=== PATIENT | female | born 1965 | race Caucasian/White ===

== ENCOUNTER 2017-04-21 21:44 | Emergency (ER) | payer OTHER ==
[~2017-04-21] VITALS: Ht 154.9 cm; Wt 91.2 kg
[~2017-04-21 21:44] MED LIST: ALBUTEROL SUL0.083 % IN; ALBUTEROL2.5 MG/3 M IN; ALLEGRA-D 1212 HOUR PO; AMOXICILLIN500 MG PO; AVELOX400 MG PO; BENADRYL25 M2 PO; CIPRO500 MG OR; CIPROFLOXACN500 MG PO; CLARITIN10 MG PO; DIPHENHYDRAM25 MG PO; DOXYCYCL HYC100 MG PO; DUONEB INH; FLAGYL500 MG OR; FLAGYL500 MG PO; FLEXERIL PO; FLOVENT HFA44 MCG INH; LORTAB5 PO; Levaquin PO; MEDDOSEPAK PO; METRONIDAZOL500 MG PO; NO HOME MEDS; NORCO1 TA1 PO; ONDANSETRON4 MG PO; PREDNISONE1 MG PO; PREDNISONE20 MG PO; PROAIR HFA IN; PROTONIX40 M2 PO; PROVENTIL HFA IN; ROBITUSSIN AC10 ML PO; TRAMADOL HCL50 MG PO; ULTRAM50 M1 PO; ULTRAM50 MG OR; ZOFRAN4 MG/TAB PO; ZPAK PO; ZYRTEC10 M5 PO; ZYRTEC10 MG PO
[2017-04-21] MEDS ORDERED: PROVENTIL HFA IN (22:09)
[2017-04-21] MEDS ORDERED: MONTELUKAST SOD10 MG PO (22:09)
[2017-04-21] MEDS ORDERED: SYMBICORT1 AE1 IN (22:10)
[2017-04-21] MEDS ORDERED: TESSALON PERLE100 MG PO (22:11)
[2017-04-21] MEDS ORDERED: PEPCID20 MG PO (22:46)
[2017-04-21] MEDS ORDERED: BENADRYL 50MG C50 MG PO (22:46)
[2017-04-21 23:00] VITALS: BP 123/59
== END 2017-04-21 23:05 | disposition home or self-care (01) | DRG 607 ==
LOC: ED 21:44
DX: L29.9 Pruritus, unspecified (principal); J44.9 Chronic obstructive pulmonary disease, unspecified; T38.0X5A Adverse effect of glucocorticoids and synthetic analogues, initial encounter; F17.210 Nicotine dependence, cigarettes, uncomplicated

== ENCOUNTER 2017-06-28 18:23 | Emergency (ER) | payer OTHER ==
[~2017-06-28] VITALS: Ht 154.9 cm; Wt 80.0 kg
[~2017-06-28 18:23] MED LIST changes: +BENADRYL 50MG C50 MG PO; +MONTELUKAST SOD10 MG PO; +PEPCID20 MG PO; +SYMBICORT1 AE1 IN; +TESSALON PERLE100 MG PO
[2017-06-28 19:15] VITALS: BP 129/75
== END 2017-06-28 19:15 | disposition home or self-care (01) | DRG 605 ==
LOC: ED 18:23
DX: S90.31XA Contusion of right foot, initial encounter (principal); W22.09XA Striking against other stationary object, initial encounter; Y93.89 Activity, other specified; Y92.003 Bedroom of unspecified non-institutional (private) residence as the place of occurrence of the external cause

== ENCOUNTER 2017-07-09 08:52 | Emergency (ER) | payer OTHER ==
[~2017-07-09] VITALS: Ht 154.9 cm; Wt 90.4 kg
[2017-07-09] MEDS ORDERED: EC-NAPROSYN500 MG PO (10:02)
[2017-07-09 10:11] LABS: URINE BILIRUBIN - DIPSTICK NEGATIVE (NEGATIVE); URINE BLOOD DIPSTICK NEGATIVE (NEGATIVE); URINE CLARITY CLEAR; URINE COLOR YELLOW; URINE GLUCOSE - DIPSTICK NEGATIVE (NEGATIVE); URINE KETONE NEGATIVE (NEGATIVE); URINE LEUK ESTERASE NEGATIVE (Negative); URINE NITRITE - DIPSTICK NEGATIVE (Negative); URINE PH 5.5 (4.5-8.0); URINE PROTEIN - DIPSTICK NEGATIVE (NEG-TRACE); URINE UROBILINOGEN - DIPSTICK 0.2 E.U./dL (0.2)
[2017-07-09 10:30] VITALS: BP 131/80
== END 2017-07-09 10:30 | disposition home or self-care (01) | DRG 605 ==
LOC: ED 08:52
PROVIDERS: Emergency Medicine
PROC: 2W3EX1Z Immobilization of Right Hand using Splint (ICD-10-PCS; principal; 2017-07-09)
DX: S60.416A Abrasion of right little finger, initial encounter (principal); J44.9 Chronic obstructive pulmonary disease, unspecified; F17.210 Nicotine dependence, cigarettes, uncomplicated; W23.0XXA Caught, crushed, jammed, or pinched between moving objects, initial encounter; Y92.149 Unspecified place in prison as the place of occurrence of the external cause; Y99.0 Civilian activity done for income or pay

== ENCOUNTER 2017-07-12 19:56 | Emergency (ER) | payer OTHER ==
[~2017-07-12] VITALS: Ht 154.9 cm; Wt 88.0 kg
[~2017-07-12 19:56] MED LIST changes: +EC-NAPROSYN500 MG PO
[2017-07-12 21:05] LABS: HEMATOCRIT 39.3 % (37.0-47.0); HEMOGLOBIN 13.3 g/dl (12.0-16.0); IMMATURE GRANULOCYTES 0.3 % (0.0-1.0); MEAN CELL VOLUME 92.3 fL CALC (80.0-100.0); MEAN CORPUSCULAR HGB 31.2 pG CALC (26.0-32.0); MEAN CORPUSCULAR HGB CONC 33.8 g/L CALC (32.0-36.0); NEUT# 5.46 thou/uL (2.00-7.15); RED BLOOD COUNT 4.26 mill/uL (4.20-5.60); RED CELL DISTRI WIDTH 12.6 % (11.5-15.5)
[2017-07-12 21:11] LABS: URINE BILIRUBIN - DIPSTICK NEGATIVE (NEGATIVE); URINE BLOOD DIPSTICK NEGATIVE (NEGATIVE); URINE CLARITY CLEAR; URINE COLOR YELLOW; URINE GLUCOSE - DIPSTICK NEGATIVE (NEGATIVE); URINE KETONE NEGATIVE (NEGATIVE); URINE LEUK ESTERASE NEGATIVE (NEGATIVE); URINE NITRITE - DIPSTICK NEGATIVE (Negative); URINE PROTEIN - DIPSTICK NEGATIVE (NEG-TRACE); URINE UROBILINOGEN - DIPSTICK 0.2 E.U./dL (0.2)
[2017-07-12 21:18] LABS: ALBUMIN 4.2 g/dL (3.2-5.0); ALKALINE PHOSPHATASE 166 u/l (38-126); AMYLASE 51 u/l (30-110); ANION GAP 14 (6-22 (CALC)); BILIRUBIN, TOTAL 0.5 mg/dL (0.0-1.4); BUN 11 mg/dL (7-17); BUN/CREATININE RATIO 17 (12-20 (CALC)); CALCIUM 9.5 mg/dL (8.4-10.2); CARBON DIOXIDE 27 mmol/l (22-30); CHLORIDE 106 mmol/l (95-108); CREATININE 0.7 mg/dL (0.5-1.0); GFR > 60 ML/MIN (>=60 (CALC)); GFR FOR AFR.AMER. > 60 ML/MIN (>=60 (CALC)); GLUCOSE 94 mg/dL (65-105); LIPASE 148 u/l (23-300); POTASSIUM 3.9 mmol/l (3.5-5.1); SGOT/AST 24 u/l (14-36); SGPT/ALT 70 u/l (9-52); SODIUM 143 mmol/l (137-146); TOTAL PROTEIN 7.6 g/dL (6.3-8.2)
[2017-07-12] MEDS ORDERED: ZOFRAN ODT4 MG PO (22:56)
[2017-07-12] MEDS ORDERED: LORTAB 10-325 M1 TAB PO (22:56)
[2017-07-12] MEDS ORDERED: METRONIDAZOL500 MG PO (22:56)
[2017-07-12] MEDS ORDERED: CIPROFLOXACN500 MG PO (22:56)
[2017-07-12 23:45] VITALS: BP 138/61
== END 2017-07-12 23:45 | disposition home or self-care (01) | DRG 392 ==
LOC: ED 19:56
PROVIDERS: Emergency Medicine
DX: K57.32 Diverticulitis of large intestine without perforation or abscess without bleeding (principal); J44.9 Chronic obstructive pulmonary disease, unspecified; F17.210 Nicotine dependence, cigarettes, uncomplicated
CPT/HCPCS: Q9967

== ENCOUNTER 2017-11-05 13:15 | Emergency (ER) | payer OTHER ==
[~2017-11-05] VITALS: Ht 154.9 cm; Wt 91.0 kg
[~2017-11-05 13:15] MED LIST changes: +LORTAB 10-325 M1 TAB PO; +ZOFRAN ODT4 MG PO
[2017-11-05] MEDS ORDERED: KEFLEX500 M1 PO (14:50)
[2017-11-05 14:53] LABS: HEMATOCRIT 46.8 % (37.0-47.0); HEMOGLOBIN 15.7 g/dl (12.0-16.0); IMMATURE GRANULOCYTES 0.4 % (0.0-1.0); MEAN CELL VOLUME 93.2 fL CALC (80.0-100.0); MEAN CORPUSCULAR HGB 31.3 pG CALC (26.0-32.0); MEAN CORPUSCULAR HGB CONC 33.5 g/L CALC (32.0-36.0); NEUT# 8.77 thou/uL (2.00-7.15); RED BLOOD COUNT 5.02 mill/uL (4.20-5.60); RED CELL DISTRI WIDTH 12.3 % (11.5-15.5)
[2017-11-05 14:59] LABS: URINE BILIRUBIN - DIPSTICK NEGATIVE (NEGATIVE); URINE BLOOD DIPSTICK NEGATIVE (NEGATIVE); URINE COLOR YELLOW; URINE GLUCOSE - DIPSTICK NEGATIVE (NEGATIVE); URINE KETONE NEGATIVE (NEGATIVE); URINE LEUK ESTERASE NEGATIVE (NEGATIVE); URINE NITRITE - DIPSTICK NEGATIVE (Negative); URINE PH 5.5 (4.5-8.0); URINE PROTEIN - DIPSTICK NEGATIVE (NEG-TRACE); URINE SPECIFIC GRAVITY 1.025; URINE UROBILINOGEN - DIPSTICK 0.2 E.U./dL (0.2)
[2017-11-05 15:00] LABS: URINE CLARITY CLEAR
[2017-11-05 15:09] LABS: ALBUMIN 4.7 g/dL (3.2-5.0); ALKALINE PHOSPHATASE 180 u/l (38-126); ANION GAP 18 (6-22 (CALC)); BILIRUBIN, TOTAL 0.4 mg/dL (0.0-1.4); BUN 9 mg/dL (7-17); BUN/CREATININE RATIO 15 (12-20 (CALC)); CALCIUM 10.6 mg/dL (8.4-10.2); CARBON DIOXIDE 22 mmol/l (22-30); CHLORIDE 107 mmol/l (95-108); CREATININE 0.6 mg/dL (0.5-1.0); GFR > 60 ML/MIN (>=60 (CALC)); GFR FOR AFR.AMER. > 60 ML/MIN (>=60 (CALC)); GLUCOSE 128 mg/dL (65-105); LIPASE 244 u/l (23-300); POTASSIUM 4.5 mmol/l (3.5-5.1); SGOT/AST 24 u/l (14-36); SGPT/ALT 41 u/l (9-52); SODIUM 142 mmol/l (137-146)
[2017-11-05 16:21] VITALS: BP 119/55
[2017-11-05] MEDS ORDERED: METRONIDAZOL500 MG PO (17:35)
[2017-11-05] MEDS ORDERED: CIPROFLOXACN500 MG PO (17:35)
[2017-11-05] MEDS ORDERED: ZOFRAN4 M1 PO (17:36)
== END 2017-11-05 18:11 | disposition home or self-care (01) | DRG 392 ==
LOC: ED 13:15
PROVIDERS: Family Medicine
DX: K57.32 Diverticulitis of large intestine without perforation or abscess without bleeding (principal); R10.32 Left lower quadrant pain; R11.0 Nausea
CPT/HCPCS: Q9967

== ENCOUNTER 2017-12-29 10:55 | Emergency (ER) | payer OTHER ==
[~2017-12-29] VITALS: Ht 154.9 cm; Wt 100.0 kg
[~2017-12-29 10:55] MED LIST changes: +KEFLEX500 M1 PO; +ZOFRAN4 M1 PO
[2017-12-29 11:30] LABS: HEMATOCRIT 45.1 % (37.0-47.0); IMMATURE GRANULOCYTES 0.4 % (0.0-1.0); MEAN CORPUSCULAR HGB 30.9 pG CALC (26.0-32.0); MEAN CORPUSCULAR HGB CONC 33.3 g/L CALC (32.0-36.0); NEUT# 4.19 thou/uL (2.00-7.15); RED BLOOD COUNT 4.85 mill/uL (4.20-5.60); RED CELL DISTRI WIDTH 12.4 % (11.5-15.5)
[2017-12-29 11:53] LABS: ALBUMIN 4.4 g/dL (3.2-5.0); ALKALINE PHOSPHATASE 154 u/l (38-126); ANION GAP 17 (6-22 (CALC)); BILIRUBIN, TOTAL 0.4 mg/dL (0.0-1.4); BUN 8 mg/dL (7-17); BUN/CREATININE RATIO 12 (12-20 (CALC)); CARBON DIOXIDE 22 mmol/l (22-30); CHLORIDE 110 mmol/l (95-108); CREATININE 0.7 mg/dL (0.5-1.0); GFR > 60 ML/MIN (>=60 (CALC)); GFR FOR AFR.AMER. > 60 ML/MIN (>=60 (CALC)); POTASSIUM 4.3 mmol/l (3.5-5.1); SGOT/AST 22 u/l (14-36); SGPT/ALT 43 u/l (9-52); SODIUM 144 mmol/l (137-146); TOTAL PROTEIN 7.8 g/dL (6.3-8.2)
[2017-12-29] MEDS ORDERED: ZPAK PO (12:08)
[2017-12-29] MEDS ORDERED: PREDNISONE50 MG PO (12:08)
[2017-12-29] MEDS ORDERED: ALBUTEROL SUL0.083 % IN (12:08)
[2017-12-29 12:33] VITALS: BP 111/54
== END 2017-12-29 12:38 | disposition home or self-care (01) | DRG 192 ==
LOC: ED 10:55
PROVIDERS: Family Medicine
DX: J44.1 Chronic obstructive pulmonary disease with (acute) exacerbation (principal); F17.210 Nicotine dependence, cigarettes, uncomplicated; R06.02 Shortness of breath; R20.0 Anesthesia of skin; R20.2 Paresthesia of skin; R05 Cough; R50.9 Fever, unspecified

== ENCOUNTER 2018-04-25 05:33 | Emergency (ER) | payer OTHER ==
[~2018-04-25] VITALS: Ht 154.9 cm; Wt 93.4 kg
[~2018-04-25 05:33] MED LIST changes: +PREDNISONE50 MG PO
[2018-04-25 06:12] LABS: URINE BILIRUBIN - DIPSTICK NEGATIVE (NEGATIVE); URINE BLOOD DIPSTICK NEGATIVE (NEGATIVE); URINE COLOR YELLOW; URINE GLUCOSE - DIPSTICK NEGATIVE (NEGATIVE); URINE KETONE NEGATIVE (NEGATIVE); URINE LEUK ESTERASE NEGATIVE (NEGATIVE); URINE NITRITE - DIPSTICK NEGATIVE (Negative); URINE PH 5.5 (4.5-8.0); URINE PROTEIN - DIPSTICK NEGATIVE (NEG-TRACE); URINE SPECIFIC GRAVITY >=1.030; URINE UROBILINOGEN - DIPSTICK 0.2 E.U./dL (0.2)
[2018-04-25 06:12] LABS: HEMATOCRIT 45.1 % (37.0-47.0); HEMOGLOBIN 14.8 g/dl (12.0-16.0); IMMATURE GRANULOCYTES 0.6 % (0.0-1.0); MEAN CELL VOLUME 94.9 fL CALC (80.0-100.0); MEAN CORPUSCULAR HGB 31.2 pG CALC (26.0-32.0); MEAN CORPUSCULAR HGB CONC 32.8 g/L CALC (32.0-36.0); NEUT# 7.84 thou/uL (2.00-7.15); RED BLOOD COUNT 4.75 mill/uL (4.20-5.60); RED CELL DISTRI WIDTH 12.3 % (11.5-15.5)
[2018-04-25 06:16] LABS: URINE CLARITY CLEAR
[2018-04-25 06:26] LABS: ALBUMIN 4.4 g/dL (3.2-5.0); ALKALINE PHOSPHATASE 144 u/l (38-126); AMYLASE 71 u/l (30-110); ANION GAP 16 (6-22 (CALC)); BILIRUBIN, TOTAL 0.3 mg/dL (0.0-1.4); BUN 14 mg/dL (7-17); BUN/CREATININE RATIO 23 (12-20 (CALC)); CARBON DIOXIDE 19 mmol/l (22-30); CHLORIDE 110 mmol/l (95-108); CREATININE 0.6 mg/dL (0.5-1.0); GFR > 60 ML/MIN (>=60 (CALC)); GFR FOR AFR.AMER. > 60 ML/MIN (>=60 (CALC)); LIPASE 281 u/l (23-300); POTASSIUM 4.4 mmol/l (3.5-5.1); SGPT/ALT 85 u/l (9-52); SODIUM 140 mmol/l (137-146)
[2018-04-25 06:38] LABS: SGOT/AST 41 u/l (14-36)
[2018-04-25] MEDS ORDERED: BENTYL10 MG PO (07:33)
[2018-04-25 07:38] VITALS: BP 105/57
[2018-04-26] MEDS ORDERED: ZESTRIL/PRINIV2.5 MG PO (23:46)
[2018-04-26] MEDS ORDERED: METFORMIN500 M1 PO (23:47)
[2018-04-26] MEDS ORDERED: ADULT ASPIRIN E81 MG PO (23:47)
[2018-04-26] MEDS ORDERED: ROSUVASTATIN CA20 MG PO (23:48)
== END 2018-04-25 07:44 | disposition home or self-care (01) | DRG 392 ==
LOC: ED 05:33
PROVIDERS: Emergency Medicine
DX: R10.33 Periumbilical pain (principal); R19.7 Diarrhea, unspecified; E11.9 Type 2 diabetes mellitus without complications; J44.9 Chronic obstructive pulmonary disease, unspecified; F17.210 Nicotine dependence, cigarettes, uncomplicated

== ENCOUNTER 2018-04-26 23:20 | Emergency (ER) | payer OTHER ==
[~2018-04-26] VITALS: Ht 154.9 cm; Wt 92.7 kg
[~2018-04-26 23:20] MED LIST changes: +BENTYL10 MG PO
[2018-04-26] MEDS ORDERED: ZESTRIL/PRINIV2.5 MG PO (23:46)
[2018-04-26] MEDS ORDERED: METFORMIN500 M1 PO (23:47)
[2018-04-26] MEDS ORDERED: ADULT ASPIRIN E81 MG PO (23:47)
[2018-04-26] MEDS ORDERED: ROSUVASTATIN CA20 MG PO (23:48)
[2018-04-27 02:03] VITALS: BP 124/59
== END 2018-04-27 02:03 | disposition home or self-care (01) | DRG 316 ==
LOC: ED 23:20
DX: I95.9 Hypotension, unspecified (principal); E11.9 Type 2 diabetes mellitus without complications; J44.9 Chronic obstructive pulmonary disease, unspecified; F17.210 Nicotine dependence, cigarettes, uncomplicated

== ENCOUNTER 2018-07-13 12:14 | Observation (INO) | payer OTHER ==
[~2018-07-13] VITALS: Ht 154.9 cm; Wt 86.3 kg
[~2018-07-13 12:14] MED LIST changes: +ADULT ASPIRIN E81 MG PO; +METFORMIN500 M1 PO; +ROSUVASTATIN CA20 MG PO; +ZESTRIL/PRINIV2.5 MG PO
[2018-07-13 12:48] LABS: HEMATOCRIT 48.1 % (37.0-47.0); HEMOGLOBIN 15.7 g/dl (12.0-16.0); IMMATURE GRANULOCYTES 0.4 % (0.0-5.0); MEAN CELL VOLUME 93.2 fL CALC (80.0-100.0); MEAN CORPUSCULAR HGB 30.4 pG CALC (26.0-32.0); MEAN CORPUSCULAR HGB CONC 32.6 g/L CALC (32.0-36.0); NEUT# 5.56 thou/uL (2.00-7.15); RED BLOOD COUNT 5.16 mill/uL (4.20-5.60); RED CELL DISTRI WIDTH 12.1 % (11.5-15.5)
[2018-07-13 13:00] LABS: ALBUMIN 4.7 g/dL (3.2-5.0); ALKALINE PHOSPHATASE 162 u/l (38-126); ANION GAP 18 (6-22 (CALC)); BILIRUBIN, TOTAL 0.4 mg/dL (0.0-1.4); BUN 12 mg/dL (7-17); BUN/CREATININE RATIO 17 (12-20 (CALC)); CARBON DIOXIDE 22 mmol/l (22-30); CHLORIDE 108 mmol/l (95-108); CREATININE 0.7 mg/dL (0.5-1.0); GFR > 60 ML/MIN (>=60 (CALC)); GFR FOR AFR.AMER. > 60 ML/MIN (>=60 (CALC)); POTASSIUM 3.9 mmol/l (3.5-5.1); SGOT/AST 27 u/l (14-36); SGPT/ALT 50 u/l (9-52); SODIUM 144 mmol/l (137-146); TOTAL PROTEIN 8.6 g/dL (6.3-8.2)
[2018-07-13 15:58] VITALS: BP 113/52
[2018-07-13 19:36] VITALS: BP 105/59
[2018-07-14 05:05] VITALS: BP 103/59
[2018-07-14 05:48] LABS: ALBUMIN 3.8 g/dL (3.2-5.0); ALKALINE PHOSPHATASE 132 u/l (38-126); ANION GAP 18 (6-22 (CALC)); BILIRUBIN, TOTAL 0.2 mg/dL (0.0-1.4); BUN 12 mg/dL (7-17); BUN/CREATININE RATIO 20 (12-20 (CALC)); CARBON DIOXIDE 19 mmol/l (22-30); CHLORIDE 109 mmol/l (95-108); CREATININE 0.6 mg/dL (0.5-1.0); GFR > 60 ML/MIN (>=60 (CALC)); GFR FOR AFR.AMER. > 60 ML/MIN (>=60 (CALC)); MAGNESIUM 1.8 mg/dL (1.6-2.3); POTASSIUM 4.5 mmol/l (3.5-5.1); SGOT/AST 23 u/l (14-36); SGPT/ALT 44 u/l (9-52); SODIUM 142 mmol/l (137-146); TOTAL PROTEIN 7.1 g/dL (6.3-8.2)
[2018-07-14 06:03] LABS: HEMATOCRIT 43.4 % (37.0-47.0); HEMOGLOBIN 14.1 g/dl (12.0-16.0); IMMATURE GRANULOCYTES 0.8 % (0.0-5.0); MEAN CELL VOLUME 94.8 fL CALC (80.0-100.0); MEAN CORPUSCULAR HGB 30.8 pG CALC (26.0-32.0); MEAN CORPUSCULAR HGB CONC 32.5 g/L CALC (32.0-36.0); NEUT# 9.27 thou/uL (2.00-7.15); RED BLOOD COUNT 4.58 mill/uL (4.20-5.60); RED CELL DISTRI WIDTH 12.2 % (11.5-15.5)
[2018-07-14 07:50] VITALS: BP 111/60
== END 2018-07-14 11:07 | disposition home or self-care (01) | DRG 918 ==
LOC: ED 12:14 → ED-I 14:29 → ED 14:45 → MS2 14:46
PROVIDERS: Emergency Medicine; Nurse Practitioner Family; ADMIT Internal Medicine Nephrology; ATTEND Internal Medicine Nephrology
PROC: 3E0234Z Introduction of Serum, Toxoid and Vaccine into Muscle, Percutaneous Approach (ICD-10-PCS; principal; 2018-07-14)
DX: T54.91XA Toxic effect of unspecified corrosive substance, accidental (unintentional), initial encounter (principal); J44.1 Chronic obstructive pulmonary disease with (acute) exacerbation; T65.891A Toxic effect of other specified substances, accidental (unintentional), initial encounter; F17.210 Nicotine dependence, cigarettes, uncomplicated; E66.9 Obesity, unspecified; G47.33 Obstructive sleep apnea (adult) (pediatric); Y92.002 Bathroom of unspecified non-institutional (private) residence as the place of occurrence of the external cause; Z68.35 Body mass index [BMI] 35.0-35.9, adult; Z23 Encounter for immunization
CPT/HCPCS: G0378; J1650

== ENCOUNTER 2019-05-29 12:40 | Emergency (ER) | payer OTHER ==
[~2019-05-29] VITALS: Ht 154.9 cm; Wt 85.0 kg
[2019-05-29 13:33] LABS: HEMOGLOBIN 14.7 g/dl (12.0-16.0); IMMATURE GRANULOCYTES 0.5 % (0.0-5.0); MEAN CELL VOLUME 92.8 fL CALC (80.0-100.0); MEAN CORPUSCULAR HGB 30.3 pG CALC (26.0-32.0); MEAN CORPUSCULAR HGB CONC 32.7 g/L CALC (32.0-36.0); NEUT# 5.62 thou/uL (2.00-7.15); RED BLOOD COUNT 4.85 mill/uL (4.20-5.60); RED CELL DISTRI WIDTH 12.4 % (11.5-15.5)
[2019-05-29 13:42] LABS: URINE BILIRUBIN - DIPSTICK NEGATIVE (NEGATIVE); URINE BLOOD DIPSTICK NEGATIVE (NEGATIVE); URINE COLOR YELLOW; URINE GLUCOSE - DIPSTICK NEGATIVE (NEGATIVE); URINE KETONE NEGATIVE (NEGATIVE); URINE LEUK ESTERASE NEGATIVE (NEGATIVE); URINE NITRITE - DIPSTICK NEGATIVE (Negative); URINE PROTEIN - DIPSTICK NEGATIVE (NEG-TRACE); URINE SPECIFIC GRAVITY >=1.030; URINE UROBILINOGEN - DIPSTICK 0.2 E.U./dL (0.2)
[2019-05-29 13:56] LABS: ALKALINE PHOSPHATASE 138 u/l (38-126); BUN 14 mg/dL (7-17); BUN/CREATININE RATIO 23 (12-20 (CALC)); CHLORIDE 107 mmol/l (95-108); CREATININE 0.6 mg/dL (0.5-1.0); GFR > 60 ML/MIN (>=60 (CALC)); GFR FOR AFR.AMER. > 60 ML/MIN (>=60 (CALC)); LIPASE 195 u/l (23-300); POTASSIUM 4.3 mmol/l (3.5-5.1); SGOT/AST 39 u/l (14-36); SODIUM 142 mmol/l (137-146); TOTAL PROTEIN 8.3 g/dL (6.3-8.2)
[2019-05-29 13:59] LABS: ALBUMIN 4.7 g/dL (3.2-5.0); ANION GAP 14 (6-22 (CALC)); BILIRUBIN, TOTAL 0.7 mg/dL (0.0-1.4); CARBON DIOXIDE 25 mmol/l (22-30)
[2019-05-29] MEDS ORDERED: ONDANSETRON4 MG PO (15:02)
[2019-05-29 15:43] VITALS: BP 116/60
== END 2019-05-29 15:43 | disposition home or self-care (01) | DRG 392 ==
LOC: ED 12:40
PROVIDERS: Family Medicine
DX: R10.84 Generalized abdominal pain (principal); K62.89 Other specified diseases of anus and rectum; R30.0 Dysuria; K76.0 Fatty (change of) liver, not elsewhere classified; F17.210 Nicotine dependence, cigarettes, uncomplicated
CPT/HCPCS: Q9967

== ENCOUNTER 2019-09-04 23:48 | Emergency (ER) | payer OTHER ==
[~2019-09-04] VITALS: Ht 154.9 cm; Wt 91.0 kg
[2019-09-05 00:41] LABS: HEMATOCRIT 45.4 % (37.0-47.0); HEMOGLOBIN 14.8 g/dl (12.0-16.0); IMMATURE GRANULOCYTES 0.4 % (0.0-5.0); MEAN CELL VOLUME 93.6 fL CALC (80.0-100.0); MEAN CORPUSCULAR HGB 30.5 pG CALC (26.0-32.0); MEAN CORPUSCULAR HGB CONC 32.6 g/L CALC (32.0-36.0); NEUT# 4.93 thou/uL (2.00-7.15); RED BLOOD COUNT 4.85 mill/uL (4.20-5.60); RED CELL DISTRI WIDTH 12.2 % (11.5-15.5)
[2019-09-05] MEDS ORDERED: TORADOL PO (02:12)
[2019-09-05 02:14] VITALS: BP 139/75
== END 2019-09-05 02:24 | disposition home or self-care (01) | DRG 313 ==
LOC: ED 23:48
PROVIDERS: Family Medicine
DX: R07.89 Other chest pain (principal)

== ENCOUNTER 2020-02-27 | Emergency (ER) | payer OTHER ==
[~2020-02-27] MED LIST changes: +TORADOL PO
[2020-02-27 20:06] LABS: HEMATOCRIT 41.7 % (37.0-47.0); HEMOGLOBIN 14.1 g/dl (12.0-16.0); IMMATURE GRANULOCYTES 0.3 % (0.0-5.0); MEAN CELL VOLUME 90.7 fL CALC (80.0-100.0); MEAN CORPUSCULAR HGB 30.7 pG CALC (26.0-32.0); MEAN CORPUSCULAR HGB CONC 33.8 g/dL CAL (32.0-36.0); NEUT# 4.83 thou/uL (2.00-7.15); RED BLOOD COUNT 4.6 mill/uL (4.20-5.60); RED CELL DISTRI WIDTH 13.1 % (11.5-15.5)
[2020-02-27 20:08] LABS: URINE BLOOD DIPSTICK NEGATIVE (NEGATIVE); URINE COLOR YELLOW; URINE GLUCOSE - DIPSTICK NEGATIVE (NEGATIVE); URINE KETONE 40 mg/dL (NEGATIVE); URINE LEUK ESTERASE NEGATIVE (NEGATIVE); URINE NITRITE - DIPSTICK NEGATIVE (Negative); URINE PROTEIN - DIPSTICK 30 mg/dL (NEG-TRACE); URINE SPECIFIC GRAVITY >=1.030; URINE UROBILINOGEN - DIPSTICK 0.2 E.U./dL (0.2)
[2020-02-27 20:09] LABS: URINE BILIRUBIN - DIPSTICK MODERATE (NEGATIVE)
[2020-02-27 20:16] LABS: URINE CALCIUM OXALATE CRYSTALS MODERATE lpf; URINE SQUAMOUS EPITHELIAL CELL FEW EPI/hpf (0-FEW)
[2020-02-27 20:26] LABS: ALBUMIN 4.6 g/dL (3.2-5.0); ALKALINE PHOSPHATASE 164 u/l (38-126); AMYLASE 71 u/l (30-110); ANION GAP 16 (6-22 (CALC)); BILIRUBIN, TOTAL 0.6 mg/dL (0.0-1.4); BUN 14 mg/dL (7-17); BUN/CREATININE RATIO 25 (12-20 (CALC)); CARBON DIOXIDE 22 mmol/l (22-30); CHLORIDE 103 mmol/l (95-108); CREATININE 0.5 mg/dL (0.5-1.0); GFR > 60 ML/MIN (>=60 (CALC)); GFR FOR AFR.AMER. > 60 ML/MIN (>=60 (CALC)); POTASSIUM 3.6 mmol/l (3.5-5.1); SGOT/AST 41 u/l (14-36); SODIUM 138 mmol/l (137-146); TOTAL PROTEIN 8.2 g/dL (6.3-8.2)
[2020-02-27] MEDS ORDERED: METFORMIN500 M2 PO (22:21)
[2020-02-27] MEDS ORDERED: ASPIRIN81 MG PO (22:22)
[2020-02-27] MEDS ORDERED: LIPITOR10 M1 PO (22:22)
== END 2020-02-27 22:30 | disposition home or self-care (01) | DRG 392 ==
PROVIDERS: Emergency Medicine
DX: R10.32 Left lower quadrant pain (principal); J44.9 Chronic obstructive pulmonary disease, unspecified; F17.200 Nicotine dependence, unspecified, uncomplicated
CPT/HCPCS: Q9967; S0164

== ENCOUNTER 2020-04-15 11:26 | Observation (INO) | payer OTHER ==
[~2020-04-15] VITALS: Ht 154.9 cm; Wt 82.7 kg
[~2020-04-15 11:26] MED LIST changes: +ASPIRIN81 MG PO; +LIPITOR10 M1 PO; +METFORMIN500 M2 PO
--- NOTE | 2020-04-15 11:42 | NUR ---
Amb to room 8 with steady gait.
--- NOTE | 2020-04-15 11:50 | NUR ---
PT ASSESSED. REPORTS DIZZY AND NAUSEATED THIS MORNING. SENT BY WORK FOR FEVER 99.4. PT AFEBRILE IN ED. CHANGED TO GOWN. MONITORS APPLIED. PT AO X 3. SKIN PINK WARM AND DRY. MOVES ALL EXTREMITIES. MEND 0
--- NOTE | 2020-04-15 12:40 | NUR ---
PT AMBULATORY TO BATHROOM. UA SENT TO LAB
[2020-04-15 12:58] LABS: HEMATOCRIT 43.6 % (37.0-47.0); HEMOGLOBIN 14.3 g/dl (12.0-16.0); IMMATURE GRANULOCYTES 0.4 % (0.0-5.0); MEAN CELL VOLUME 91.6 fL CALC (80.0-100.0); MEAN CORPUSCULAR HGB CONC 32.8 g/dL CAL (32.0-36.0); NEUT# 10.18 thou/uL (2.00-7.15); RED BLOOD COUNT 4.76 mill/uL (4.20-5.60)
[2020-04-15 13:02] LABS: URINE BILIRUBIN - DIPSTICK NEGATIVE (NEGATIVE); URINE BLOOD DIPSTICK NEGATIVE (NEGATIVE); URINE COLOR YELLOW; URINE GLUCOSE - DIPSTICK NEGATIVE (NEGATIVE); URINE KETONE NEGATIVE (NEGATIVE); URINE LEUK ESTERASE NEGATIVE (NEGATIVE); URINE NITRITE - DIPSTICK NEGATIVE (Negative); URINE PH 6.5 (4.5-8.0); URINE PROTEIN - DIPSTICK NEGATIVE (NEG-TRACE); URINE SPECIFIC GRAVITY 1.015; URINE UROBILINOGEN - DIPSTICK 0.2 E.U./dL (0.2)
--- NOTE | 2020-04-15 13:08 | NUR ---
PT MEDICATED FOR HEADACHE 02/05
[2020-04-15 13:13] LABS: ALBUMIN 4.5 g/dL (3.2-5.0); ALKALINE PHOSPHATASE 170 u/l (38-126); ANION GAP 12 (6-22 (CALC)); BUN 9 mg/dL (7-17); BUN/CREATININE RATIO 14 (12-20 (CALC)); CARBON DIOXIDE 25 mmol/l (22-30); CHLORIDE 103 mmol/l (95-108); CREATININE 0.6 mg/dL (0.5-1.0); GFR > 60 ML/MIN (>=60 (CALC)); GFR FOR AFR.AMER. > 60 ML/MIN (>=60 (CALC)); POTASSIUM 3.6 mmol/l (3.5-5.1); SGOT/AST 36 u/l (14-36); SODIUM 137 mmol/l (137-146); TOTAL PROTEIN 8.4 g/dL (6.3-8.2)
[2020-04-15 13:25] LABS: MYOGLOBIN 24 ng/mL (0 - 62)
--- NOTE | 2020-04-15 13:58 | NUR ---
PT SITTING IN CHAIR AT BEDSIDE FOR COMFORT. ANTIBIOTICS INFUSING
--- NOTE | 2020-04-15 14:20 | NUR ---
PT BP NOTED TO BE 89/50. PT RETURNED TO STRETCHER. HOB LOWERED. DR MITCHELL AWARE. PT GIVEN SANDWICH AND PO FLUIDS.
--- NOTE | 2020-04-15 14:40 | NUR ---
IV FLUID BOLUS INFUSING
[2020-04-15 14:41] LABS: C-REACTIVE PROTEIN 3.7 mg/dL (0-0.9)
--- NOTE | 2020-04-15 15:38 | NUR ---
PT RETURNED FROM CT. MONITORS IN PLACE. IV FLUIDS INFUSING
--- NOTE | 2020-04-15 15:58 | NUR ---
sbar printed to floor
--- NOTE | 2020-04-15 16:14 | NUR ---
REPORT GIVEN TO NOE KLINECREW LEADER
--- NOTE | 2020-04-15 17:40 | NUR ---
PT ARRIVED TO AL VIA WC ACCOMPANIED BY DALJIT KLINE. SLOW BUT STEADY GAIT OBSERVED. SLIGHT FACIAL FLUSHING NOTED. TEMP 100.2. TYLENOL GIVEN. PTS HOME CPAP IN ROOM. VENTOLIN INHALER GIVEN. TRACE EDEMA NOTED TO BLE. PT REPORTS TO HAVE HAD DENTAL PROCEDURE DONE YESTERDAY, SUTURES TO GUMLINE IN PLACE. MOIST COUGH NOTED. PT DENIES HAVING ANY EXPOSURE TO ANYONE WITH THE VIRUS. DECLINED [facility]. ISOLATION PRECAUTIONS IN PLACE. ORIENTED PT TO ROOM. NO OTHER NEEDS AT THIS TIME. ASSESSMENT COMPLETED. DISCUSSED POC. CALL LIGHT IN REACH. CONTINUE TO MONITOR.
--- NOTE | 2020-04-15 17:41 | NUR ---
PT TRANSPORTED VIA WHEELCHAIR TO [facility]
--- NOTE | 2020-04-15 17:50 | NUR ---
PT C/O OF CHEST TIGHTNESS. DR COE NOTIFIED. PER CAROLIN BEY TROP
[2020-04-15 17:52] VITALS: BP 106/52
--- NOTE | 2020-04-15 18:05 | NUR ---
VENIPUNCTURE FOR TROPONIN OBTAINED
[2020-04-15 19:30] VITALS: BP 109/59
--- NOTE | 2020-04-15 20:30 | NUR ---
PT RESTING IN BED, NO SIGNS OF DISTRESS NOTED, RESP EVEN AND UNLABORED. PT ALERT AND ORIENTED X3, DISCUSSED POC, PT APPEARS FLUSHED, COLD WASHCLOTH PROVIDED,PT STATES SHE FEELS HOT AND HER FEVER HAS BROKEN. ADMISSION ASSESSMENT COMPLETED, IV FLUSHED WELL. PT REQUESTING SALT FOR HER SALT RINSES. DIRECTOR SALES SUPPORT TO RETURN WITH SALT. CALL LIGHT IN REACH,CONTINUE TO MONITOR.
--- NOTE | 2020-04-15 20:55 | NUR ---
PT RESTING IN BED, WITH EYES CLOSED, NO SIGNS OF DISTRESS NOTED, RESP EVEN AND UNLABORED. SALT PROVIDED SO PT MAY DO SALT RINSES PRN PER DENTIST RECCOMENDATIONS, CALL LIGHT IN REACH,CONTINUE TO MONITOR.
--- NOTE | 2020-04-15 21:49 | NUR ---
PT TEMP RECHECKED 97.9, NOTED SPO2 91%RA. PT PLACED ON O2 2L NC. PT VOICES NO NEEDS OR COMPLAINTS AT THIS TIME, CALL LIGHT IN REACH,CONTINUE TO MONITOR.
[2020-04-15 23:45] VITALS: BP 102/53
[2020-04-16] VITALS (7 sets, daily range): BP systolic 99–119; BP diastolic 48–64
--- NOTE | 2020-04-16 | NUR ---
PT RESTING IN BED, TROPONIN DRAWN, PT VOICES NO NEEDS OR COMPLAINTS AT THIS TIME. CALL LIGHT IN REACH,CONTINUE TO MONITOR.
--- NOTE | 2020-04-16 04:00 | NUR ---
PT RESTING IN BED, NO SIGNS OF DISTRESS NOTED, RESP EVEN AND UNLABORED. VITALS OBTAINED, CALL LIGHT IN REACH,CONTINUE TO MONITOR.
--- NOTE | 2020-04-16 08:20 | NUR ---
PT SITTING IN BED. A&O X3. PT STATES TO BE FEELING A LITTLE BETTER THIS MORNING. NO O2 IN PLACE, PT O2 % AT 95 RA. SLIGHT FACIAL FLUSHING NOTED. AFEBRILE THIS MORNING. NO OTHER NEEDS AT THIS TIME. ASSESSMENT COMPLETED. DISCUSSED POC. CALL LIGHT IN REACH. CONTINUE TO MONITOR.
[2020-04-16] MEDS ORDERED: ATORVASTATIN CA10 MG PO (12:10)
--- NOTE | 2020-04-16 14:45 | NUR ---
PT SITTING IN BED. NO NEEDS OR DISTRESS AT THIS TIME. CALL LIGHT IN REACH. CONTINUE TO MONITOR
--- NOTE | 2020-04-16 17:11 | NUR ---
PT SITTING IN BED. NO DISTRESS OR NEEDS AT THIS TIME. CALL LIGHT IN REACH. CONTINUE TO MONITOR.
--- NOTE | 2020-04-16 21:45 | NUR ---
pt. a/o x3. able to make needs known. no acute distress noted. pt. denies any pain at this time. medications administered per MD order. tolerated well. per pt. request peripheral accsess to RAC removed d/t discomfort and pain. will continue to monitor site. pt. awake in bed with call light within reach. bed in lowest position.
--- NOTE | 2020-04-17 01:45 | NUR ---
pt. asleep in bed with call light within reach. bed in lowest position. no distress noted
[2020-04-17 04:10] VITALS: BP 118/70
--- NOTE | 2020-04-17 05:00 | NUR ---
pt resting in bed with eyes closed. no acute distress noted. call light within reach. bed in lowest position.
[2020-04-17 07:21] LABS: HEMATOCRIT 37.1 % (37.0-47.0); HEMOGLOBIN 12.1 g/dl (12.0-16.0); IMMATURE GRANULOCYTES 0.2 % (0.0-5.0); MEAN CELL VOLUME 93.5 fL CALC (80.0-100.0); MEAN CORPUSCULAR HGB 30.5 pG CALC (26.0-32.0); MEAN CORPUSCULAR HGB CONC 32.6 g/dL CAL (32.0-36.0); NEUT# 2.99 thou/uL (2.00-7.15); RED BLOOD COUNT 3.97 mill/uL (4.20-5.60)
[2020-04-17 07:36] LABS: ALBUMIN 3.2 g/dL (3.2-5.0); ALKALINE PHOSPHATASE 121 u/l (38-126); ANION GAP 9 (6-22 (CALC)); BILIRUBIN, TOTAL 0.3 mg/dL (0.0-1.4); BUN 11 mg/dL (7-17); BUN/CREATININE RATIO 20 (12-20 (CALC)); C-REACTIVE PROTEIN 2.5 mg/dL (0-0.9); CALCULATED LDLCHOLESTEROL 61 mg/dL (62-129 (CALC)); CARBON DIOXIDE 22 mmol/l (22-30); CHLORIDE 112 mmol/l (95-108); CHOLESTEROL HDL RATIO 4.9 (<4.4 (CALC)); CREATININE 0.6 mg/dL (0.5-1.0); GFR > 60 ML/MIN (>=60 (CALC)); GFR FOR AFR.AMER. > 60 ML/MIN (>=60 (CALC)); HDL CHOLESTEROL 26 mg/dL (>=40); POTASSIUM 4.1 mmol/l (3.5-5.1); SGOT/AST 26 u/l (14-36); SODIUM 139 mmol/l (137-146); TOTAL CHOLESTEROL 127 mg/dl (0-199); TOTAL PROTEIN 6.1 g/dL (6.3-8.2); TOTAL TRIGLYCERIDES 199 mg/dl (30-149); VLDL CHOLESTROL 40 mg/dl (2-49 (CALC))
[2020-04-17 08:38] VITALS: BP 98/62
[2020-04-17 10:40] VITALS: BP 98/48
[2020-04-17] MEDS ORDERED: LEVAQUIN750 MG PO (11:20)
[2020-04-17] MEDS ORDERED: MEDDOSEPAK PO (11:22)
--- NOTE | 2020-04-17 12:35 | NUR ---
Discharge instructions given. Patient verbalizes understanding of same. Discharged in stable condition via Wheelchair to Home with family. All belongings sent with pt.
--- NOTE | 2020-04-17 12:36 | NUR ---
D/C INSTRUCTIONS GIVEN TO PT. IV INTACT UPON REMOVAL.
== END 2020-04-17 12:45 | disposition home or self-care (01) | DRG 190 ==
LOC: ED 11:26 → ED-I 15:43 → ED 15:52 → ED-I 15:52 → MS2 16:08
PROVIDERS: Emergency Medicine; Nurse Practitioner Family; ADMIT Internal Medicine; ATTEND Internal Medicine
DX: J43.9 Emphysema, unspecified (principal); J18.9 Pneumonia, unspecified organism; I95.9 Hypotension, unspecified; E11.9 Type 2 diabetes mellitus without complications; E78.5 Hyperlipidemia, unspecified; G47.33 Obstructive sleep apnea (adult) (pediatric); F17.200 Nicotine dependence, unspecified, uncomplicated; Z79.84 Long term (current) use of oral hypoglycemic drugs; Z88.8 Allergy status to other drugs, medicaments and biological substances; Z20.828 Contact with and (suspected) exposure to other viral communicable diseases
CPT/HCPCS: G0378; J1650; Q9967

== ENCOUNTER 2020-11-10 21:20 | Emergency (ER) | payer OTHER ==
[~2020-11-10] VITALS: Ht 154.9 cm; Wt 82.0 kg
[~2020-11-10 21:20] MED LIST changes: +ATORVASTATIN CA10 MG PO; +LEVAQUIN750 MG PO
[2020-11-10 22:22] LABS: URINE BILIRUBIN - DIPSTICK NEGATIVE (NEGATIVE); URINE BLOOD DIPSTICK NEGATIVE (NEGATIVE); URINE COLOR YELLOW; URINE GLUCOSE - DIPSTICK NEGATIVE (NEGATIVE); URINE KETONE NEGATIVE (NEGATIVE); URINE LEUK ESTERASE NEGATIVE (NEGATIVE); URINE NITRITE - DIPSTICK NEGATIVE (Negative); URINE PH 5.5 (4.5-8.0); URINE PROTEIN - DIPSTICK NEGATIVE (NEG-TRACE); URINE UROBILINOGEN - DIPSTICK 0.2 E.U./dL (0.2)
[2020-11-10 22:28] LABS: IMMATURE GRANULOCYTES 0.3 % (0.0-5.0); MEAN CELL VOLUME 92.6 fL CALC (80.0-100.0); MEAN CORPUSCULAR HGB 30.6 pG CALC (26.0-32.0); NEUT# 6.07 thou/uL (2.00-7.15); RED BLOOD COUNT 4.74 mill/uL (4.20-5.60); RED CELL DISTRI WIDTH 12.4 % (11.5-15.5)
[2020-11-10 22:29] LABS: HEMATOCRIT 43.9 % (37.0-47.0); HEMOGLOBIN 14.5 g/dl (12.0-16.0)
[2020-11-10 22:45] LABS: ALBUMIN 4.4 g/dL (3.2-5.0); ALKALINE PHOSPHATASE 143 u/l (38-126); AMYLASE 83 u/l (30-110); ANION GAP 13 (6-22 (CALC)); BILIRUBIN, TOTAL 0.7 mg/dL (0.0-1.4); BUN 10 mg/dL (7-17); BUN/CREATININE RATIO 17 (12-20 (CALC)); CARBON DIOXIDE 24 mmol/l (22-30); CHLORIDE 105 mmol/l (95-108); CREATININE 0.6 mg/dL (0.5-1.0); GFR > 60 ML/MIN (>=60 (CALC)); GFR FOR AFR.AMER. > 60 ML/MIN (>=60 (CALC)); LIPASE 346 u/l (23-300); POTASSIUM 4.3 mmol/l (3.5-5.1); SGOT/AST 20 u/l (14-36); SODIUM 137 mmol/l (137-146); TOTAL PROTEIN 7.9 g/dL (6.3-8.2)
[2020-11-11] MEDS ORDERED: METRONIDAZOL500 MG PO (00:25)
[2020-11-11] MEDS ORDERED: CIPROFLOXACN500 MG PO (00:25)
[2020-11-11 00:57] VITALS: BP 131/64
== END 2020-11-11 00:57 | disposition home or self-care (01) | DRG 392 ==
LOC: ED 21:20
PROVIDERS: Family Medicine
DX: K57.32 Diverticulitis of large intestine without perforation or abscess without bleeding (principal); J44.9 Chronic obstructive pulmonary disease, unspecified; E11.9 Type 2 diabetes mellitus without complications; F17.210 Nicotine dependence, cigarettes, uncomplicated; Z79.84 Long term (current) use of oral hypoglycemic drugs
CPT/HCPCS: Q9967

== ENCOUNTER 2021-04-08 13:14 | Emergency (ER) | payer OTHER ==
[~2021-04-08] VITALS: Ht 154.9 cm; Wt 85.5 kg
[2021-04-08] MEDS ORDERED: MEDDOSEPAK PO (16:24)
[2021-04-08] MEDS ORDERED: CYCLOBENZAPRINE10 MG PO (16:24)
[2021-04-08 16:33] VITALS: BP 129/76
== END 2021-04-08 16:40 | disposition home or self-care (01) | DRG 552 ==
LOC: ED 13:14
DX: M54.6 Pain in thoracic spine (principal); E11.9 Type 2 diabetes mellitus without complications; J44.9 Chronic obstructive pulmonary disease, unspecified; E78.5 Hyperlipidemia, unspecified; F17.210 Nicotine dependence, cigarettes, uncomplicated; Z79.84 Long term (current) use of oral hypoglycemic drugs

== ENCOUNTER 2024-06-09 07:27 | Emergency (ER) | payer OTHER ==
[2024-06-09] VITALS (9 sets, daily range): BP systolic 73–147; BP diastolic 37–95
[~2024-06-09] VITALS: Ht 154.9 cm; Wt 78.7 kg
[~2024-06-09 07:27] MED LIST changes: +CYCLOBENZAPRINE10 MG PO; +FISH OIL1000 M1 PO; +LEVOFLOXACIN500MG PO; +LEVOFLOXACIN750 MG PO; +METFORMIN HCL1000 MG PO; +NAPROXEN500 MG PO; +NIACIN500 M6 PO; +OMNICEF300 MG PO; +OZEMPIC4 MG SC
[2024-06-09] MEDS ORDERED: KETOROLAC TROMETHAMINE 30 MG/ML SDV IV STA (07:42)
[2024-06-09] MEDS ORDERED: ONDANSETRON HCl 4 MG/2 ML SDV IV STA (07:42)
[2024-06-09] MEDS ORDERED: SODIUM CHLORIDE 0.9% 1,000 ML IV STA (07:42)
[2024-06-09 07:49] LABS: URINE BILIRUBIN - DIPSTICK Negative (NEGATIVE); URINE BLOOD DIPSTICK Negative (NEGATIVE); URINE GLUCOSE - DIPSTICK 100 mg/dL (NEGATIVE); URINE KETONE Negative (NEGATIVE); URINE LEUK ESTERASE Negative (NEGATIVE); URINE NITRITE - DIPSTICK Negative (Negative); URINE PH 5.5 (4.5-8.0); URINE PROTEIN - DIPSTICK Negative (NEG-TRACE); URINE SPECIFIC GRAVITY 1.025; URINE UROBILINOGEN - DIPSTICK 0.2 E.U./dL (0.2)
[2024-06-09 07:50] LABS: BASO% 0.4 % (0-3); EOS% 0.4 % (0-8); IMMATURE GRANULOCYTES 0.1 % (0.0-5.0); LYMPH% 8.6 % (15-41); MEAN CELL VOLUME 94.5 fL CALC (80.0-100.0); MEAN CORPUSCULAR HGB 31.4 pG CALC (26.0-32.0); MEAN CORPUSCULAR HGB CONC 33.2 g/dL CAL (32.0-36.0); MONO% 3.8 % (2-13); NEUT# 9.59 thou/uL (2.00-7.15); NEUT% 86.7 % (42-76); RED BLOOD COUNT 4.75 mill/uL (4.20-5.60); RED CELL DISTRI WIDTH 11.9 % (11.5-15.5)
[2024-06-09 07:50] LABS: URINE COLOR Yellow
[2024-06-09 07:51] LABS: HEMATOCRIT 44.9 % (37.0-47.0); HEMOGLOBIN 14.9 g/dl (12.0-16.0)
[2024-06-09 08:44] LABS: CREATININE 0.6 mg/dL (0.5-1.0)
[2024-06-09 08:45] LABS: BILIRUBIN, TOTAL 0.6 mg/dL (0.02-1.3); POTASSIUM 4.6 mmol/l (3.5-5.1)
[2024-06-09 08:46] LABS: ALBUMIN 4.3 g/dL (3.2-5.0); TOTAL PROTEIN 7.4 g/dL (6.3-8.2)
[2024-06-09] MEDS ORDERED: MIRALAX17 GM PO (10:18)
== END 2024-06-09 10:37 | disposition home or self-care (01) | DRG 392 ==
LOC: ED 07:27
PROVIDERS: Emergency Medicine
DX: K59.00 Constipation, unspecified (principal); E11.9 Type 2 diabetes mellitus without complications; J44.9 Chronic obstructive pulmonary disease, unspecified; G47.33 Obstructive sleep apnea (adult) (pediatric); F17.210 Nicotine dependence, cigarettes, uncomplicated; Z90.49 Acquired absence of other specified parts of digestive tract; Z85.42 Personal history of malignant neoplasm of other parts of uterus; Z79.84 Long term (current) use of oral hypoglycemic drugs; Z20.822 Contact with and (suspected) exposure to COVID-19
CPT/HCPCS: Q9967

== ENCOUNTER 2024-07-15 02:30 | Emergency (ER) | payer OTHER ==
[~2024-07-15] VITALS: Ht 154.9 cm; Wt 77.0 kg
[~2024-07-15 02:30] MED LIST changes: +MIRALAX17 GM PO
[2024-07-15 02:47] VITALS: BP 140/81
[2024-07-15] MEDS ORDERED: MORPHINE SULFATE 4 MG/ML VIAL IV STA (02:55)
[2024-07-15] MEDS ORDERED: Pantoprazole Sodium 40 MG VIAL (Protonix) IV STA (02:55)
[2024-07-15] MEDS ORDERED: SODIUM CHLORIDE 0.9% 1,000 ML IV STA (02:55)
[2024-07-15] MEDS ORDERED: KETOROLAC TROMETHAMINE 30 MG/ML SDV IV ONE (03:00)
[2024-07-15] MEDS ORDERED: SODIUM CHLORIDE 0.9% 1,000 ML IV ONE (03:00)
[2024-07-15] MEDS ORDERED: DIATRIZOATE MEGLUMINE & SODIUM 30 ML/BTL BTL PO ONE (03:00)
[2024-07-15] MEDS ORDERED: PROMETHAZINE HCL 25 MG/ML AMP IV ONE (03:00)
[2024-07-15 03:19] LABS: BASO% 0.8 % (0-3); EOS% 2.9 % (0-8); IMMATURE GRANULOCYTES 0.3 % (0.0-5.0); LYMPH% 35.9 % (15-41); MEAN CELL VOLUME 93.7 fL CALC (80.0-100.0); MEAN CORPUSCULAR HGB 30.9 pG CALC (26.0-32.0); NEUT# 3.98 thou/uL (2.00-7.15); NEUT% 54.1 % (42-76); RED BLOOD COUNT 4.14 mill/uL (4.20-5.60); RED CELL DISTRI WIDTH 11.7 % (11.5-15.5)
[2024-07-15 03:21] LABS: HEMATOCRIT 38.8 % (37.0-47.0); HEMOGLOBIN 12.8 g/dl (12.0-16.0)
[2024-07-15 03:23] LABS: URINE BILIRUBIN - DIPSTICK Negative (NEGATIVE); URINE BLOOD DIPSTICK Negative (NEGATIVE); URINE GLUCOSE - DIPSTICK Negative (NEGATIVE); URINE KETONE Negative (NEGATIVE); URINE LEUK ESTERASE Negative (NEGATIVE); URINE NITRITE - DIPSTICK Negative (Negative); URINE PH 5.5 (4.5-8.0); URINE PROTEIN - DIPSTICK Negative (NEG-TRACE); URINE SPECIFIC GRAVITY 1.025; URINE UROBILINOGEN - DIPSTICK 0.2 E.U./dL (0.2)
[2024-07-15 03:25] LABS: URINE COLOR Yellow
[2024-07-15 03:28] LABS: ALBUMIN 4.5 g/dL (3.2-5.0); BILIRUBIN, TOTAL 0.5 mg/dL (0.02-1.3); CREATININE 0.7 mg/dL (0.5-1.0); POTASSIUM 3.9 mmol/l (3.5-5.1)
[2024-07-15 04:00] VITALS: BP 141/65
[2024-07-15] MEDS ORDERED: DICYCLOMINE HYD10 MG PO (06:04)
[2024-07-15] MEDS ORDERED: TRAMADOL HCL50 MG PO (06:04)
[2024-07-15 06:13] VITALS: BP 141/65
== END 2024-07-15 06:14 | disposition home or self-care (01) | DRG 392 ==
LOC: ED 02:30
PROVIDERS: Family Medicine
DX: R10.13 Epigastric pain (principal); E11.9 Type 2 diabetes mellitus without complications; J44.9 Chronic obstructive pulmonary disease, unspecified; G47.33 Obstructive sleep apnea (adult) (pediatric); F17.200 Nicotine dependence, unspecified, uncomplicated; Z85.42 Personal history of malignant neoplasm of other parts of uterus; Z90.49 Acquired absence of other specified parts of digestive tract; Z79.84 Long term (current) use of oral hypoglycemic drugs; Z79.85 Long-term (current) use of injectable non-insulin antidiabetic drugs
CPT/HCPCS: J2470; Q9967